=== PATIENT | male | born 1970 | race Caucasian/White ===

== ENCOUNTER 2017-11-05 18:02 | Emergency (ER) | payer MEDICAID ==
[~2017-11-05] VITALS: Ht 175.3 cm; Wt 73.0 kg
[2017-11-05 19:12] VITALS: BP 150/85
== END 2017-11-05 21:30 | disposition left against medical advice (07) ==
LOC: ER 19:23
DX: R10.9 Unspecified abdominal pain (principal); Z53.21 Procedure and treatment not carried out due to patient leaving prior to being seen by health care provider